=== PATIENT | male | born 1945 | race Caucasian/White ===

== ENCOUNTER → 2021-03-26 | Outpatient (CLI) | payer MEDICARE ==
[2021-03-26 09:03] LABS: INR 0.9 (<1.2); Partial Thromboplastin Time 23.1 sec (22.0-30.0)
[2021-03-26 11:01] LABS: Basophils # (A) 0.07 X 10*3/uL (0.00-0.10); Basophils % (A) 1.1 %; Eosinophils % (A) 1.5 %; HCT 35.6 % (39.6-50.0); Lymphocytes # (A) 2.47 X 10*3/uL (0.90-5.00); Lymphocytes % (A) 37.7 %; MCHC 33.7 g/dL (32.0-37.0); MCV 100.8 fL (80.0-97.0); Mean Platelet Volume 9.3 fL (9.5-12.2); Monocytes # (A) 0.59 X 10*3/uL (0.20-1.00); Neutrophils # (A) 3.31 X 10*3/uL (1.80-7.70); Neutrophils % (A) 50.5 %; Platelet Count 335 X 10*3/uL (140-440); RBC 3.53 X 10*6/uL (4.40-5.60); RDW 14.6 % (11.5-14.5); WBC 6.55 X 10*3/uL (4.50-10.00)
[2021-03-26 13:37] LABS: African American GFR (CKD) 30.6 (60.0-200.0); Anion Gap 11.2 mmol/L (4.00-12.00); Blood Urea Nitrogen 36.7 mg/dL (9.0-27.0); Carbon Dioxide 25.8 mmol/L (21.6-31.8); Non-African American GFR(CKD) 26.4 (60.0-200.0); Potassium 4.2 mmol/L (3.5-5.5)
== END | disposition home or self-care (01) ==
LOC: LABWHC1 07:07
PROVIDERS: ATTEND Internal Medicine
DX: N18.31 Chronic kidney disease, stage 3a (principal)
CPT/HCPCS: 36415; 80051; 82565; 84520; 85025; 85610; 85730

== ENCOUNTER 2021-03-27 07:41 | Day surgery (SDC) | payer MEDICARE ==
[2021-03-27] MEDS ORDERED: ALPRAZolam 0.25 MG TAB PO PRN (07:50)
[2021-03-27] MEDS ORDERED: HYDROmorphone 0.5 MG/0.5 ML SYRINGE IVP PRN (07:50)
[2021-03-27] MEDS ORDERED: DESMOPRESSIN ACETATE 16 MCG in SODIUM CHLORIDE 0.9% 50 ML IV ONE (08:09)
[2021-03-27 09:08] VITALS: TEMP 98.1
[2021-03-27 11:15] VITALS: RESP 14
--- NOTE | 2021-03-27 11:43 | CT ---
DATE OF EXAM: 03/27/2021 COMPARISON: NONE CT DLP: 852 mGycm HISTORY: Renal failure, chronic kidney disease stage IIIa PROCEDURE: Maximal barrier technique was utilized. After informed consent, the skin overlying a suit able path to the left kidney was localized using CT guidance, the skin was prepped and draped. Lidoc gabby was used for local anesthesia. A skin argelia made with a scalpel. Using CT guidance, a 17-gauge needle was advanced into in position at the posterior cortex of the left kidney where coaxial placeme nt of an 18-gauge needle was used and core biopsy obtained. Three passes made in total. Hemostasis was achieved. There was no immediate complication and patient remained in stable condition. Specime n submitted to Pathology. IMPRESSION: Status post CT guided core biopsy of left renal cortex, pathology pending. This procedur e performed by the undersigned.
[2021-03-27 15:54] VITALS: BP 107/57; PULSE 84
== END 2021-03-27 15:20 | disposition home or self-care (01) ==
LOC: RADPROMAIN 07:41
PROVIDERS: ATTEND Internal Medicine
DX: N18.31 Chronic kidney disease, stage 3a (principal); D47.2 Monoclonal gammopathy; N04.9 Nephrotic syndrome with unspecified morphologic changes
CPT/HCPCS: 86900; 86901; 86850; 36415; 50200; 77012; J2597